=== PATIENT | male | born 1975 | race Caucasian/White ===

== ENCOUNTER 2018-08-28 14:20 | Emergency (ER) | payer BC, OTHER ==
--- NOTE | 2018-08-28 15:03 | ER Document Report ---
ED Medical Screen (RME) - General Chief Complaint: Dizziness Stated Complaint: DIZZINESS Time Seen by Provider: 08/28/18 14:51 Primary Care Provider: PHILL HERNANDEZ [Primary Care Provider] - Follow up as needed Mode of Arrival: Ambulatory Information source: Patient Notes: Patient presents to the emergency department with complaints of feeling foggy cannot focus for years. He reports last Tuesday after he got done eating he came out the restaurant and he experienced some flashing lights peripherally. He reports this went away after about 5 minutes. Then Tuesday he experienced a dizzy blurred vision spinning feeling he had to sit on the floor of the garage. He reports after about 5 minutes the feeling was gone. He felt a little bit better after sitting. Later on he was able to go work in the garden. He reports he is feeling off today but he went to work. Denies all other symptoms such as chest pain shortness of breath fever vomiting diarrhea. Patient denies past medical history of cardiac disease stroke. Patient reports he has not been to a provider for physical ever. 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 I have greeted and performed a rapid initial assessment of this patient. A comprehensive ED assessment and evaluation of the patient, analysis of test results and completion of the medical decision making process will be conducted by additional ED providers. Dictation of this chart was performed using voice recognition software; therefore, there may be some unintended grammatical errors. TRAVEL OUTSIDE OF THE [place] IN LAST 30 DAYS: No - Related Data Allergies/Adverse Reactions: Penicillins Allergy (Verified 08/28/18 14:20) Past Medical History - Social History Chew tobacco use (# tins/day): No Frequency of alcohol use: None Drug Abuse: None Renal/ Medical History: Denies: Hx Peritoneal Dialysis Physical Exam - Vital signs Vitals: Temp Pulse Resp BP Pulse Ox 97.9 F 58 L 16 119/75 100 08/28/18 14:23 08/28/18 14:23 08/28/18 14:08/28/18 14:23 08/28/18 14:23 Course - Vital Signs Vital signs: Temp Pulse Resp BP Pulse Ox 97.9 F 58 L 16 119/75 100 08/28/18 14:23 08/28/18 14:23 08/28/18 14:23 08/28/18 14:23 08/28/18 14:23 Doctor's Discharge - Discharge Referrals: LOCALMD,NO [Primary Care Provider] - Follow up as needed
[2018-08-28 15:39] LABS: ABSOLUTE EOSINOPHILS # (AUTO) 0.2 10^3/uL (0.0-0.6); ABSOLUTE LYMPHOCYTES (AUTO) 2.1 10^3/uL (0.5-4.7); ABSOLUTE MONOCYTES (AUTO) 0.4 10^3/uL (0.1-1.4); ABSOLUTE NEUT (AUTO) 4.3 10^3/uL (1.7-8.2); BASOPHILS % (AUTO) 0.6 % (0-2); EOSINOPHILS % (AUTO) 2.5 % (0-6); HEMATOCRIT 44.4 % (37.9-51.0); HEMOGLOBIN 15.6 g/dL (13.5-17.0); MEAN CORPUSCULAR HEMOGLOBIN 32.5 pg (27.0-33.4); MEAN CORPUSCULAR HGB CONC 35.2 g/dL (32.0-36.0); MEAN CORPUSCULAR VOLUME 93 fl (80-97); MONOCYTES % (AUTO) 5.3 % (3-13); PLATELET COUNT 242 10^3/uL (150-450); RED CELL DISTRIBUTION WIDTH 13.4 % (11.5-14.0); SEGMENTED NEUTROPHILS % (AUTO) 61.6 % (42-78); TOTAL CELLS COUNTED % (AUTO) 100 %
[2018-08-28 15:41] LABS: APPEARANCE,URINE CLEAR; BILIRUBIN,URINE NEGATIVE (NEGATIVE); COLOR,URINE STRAW; GLUCOSE, URINE NEGATIVE (NEGATIVE); KETONES,URINE NEGATIVE (NEGATIVE); LEUKOCYTE ESTERASE,URINE NEGATIVE (NEGATIVE); NITRITE,URINE NEGATIVE (NEGATIVE); PROTEIN,URINE NEGATIVE (NEGATIVE); URINE SPECIFIC GRAVITY 1.005; UROBILINOGEN,URINE NEGATIVE mg/dL (<2.0)
[2018-08-28 15:55] LABS: URINE AMPHETAMINES SCREEN NEGATIVE; URINE BARBITURATES SCREEN NEGATIVE; URINE BENZODIAZEPINES SCREEN NEGATIVE; URINE COCAINE SCREEN NEGATIVE; URINE MARIJUANA (THC) SCREEN NEGATIVE; URINE PHENCYCLIDINE SCREEN NEGATIVE
[2018-08-28 15:57] LABS: URINE METHADONE SCREEN NEGATIVE
[2018-08-28 15:58] LABS: ALANINE AMINOTRANSFERASE 32 U/L (21-72); ALBUMIN 4.8 g/dL (3.5-5.0); ALKALINE PHOSPHATASE 75 U/L (38-126); ANION GAP 9 (5-19); ASPARTATE AMINO TRANSFERASE 29 U/L (17-59); BILIRUBIN,DIRECT 0.3 mg/dL (0.0-0.4); BILIRUBIN,TOTAL 1.4 mg/dL (0.2-1.3); BLOOD UREA NITROGEN 12 mg/dL (7-20); CALCIUM 10.2 mg/dL (8.4-10.2); CARBON DIOXIDE 30 mmol/L (22-30); CHLORIDE 100 mmol/L (98-107); GLUCOSE 81 mg/dL (75-110); POTASSIUM 4.2 mmol/L (3.6-5.0); SODIUM 138.8 mmol/L (137-145); TOTAL PROTEIN 7.7 g/dL (6.3-8.2)
--- NOTE | 2018-08-28 17:19 | ER Document Report ---
ED General - General Chief Complaint: Dizziness Stated Complaint: DIZZINESS Time Seen by Provider: 08/28/18 14:51 Primary Care Provider: SWATI NAVARRO MD [ACTIVE STAFF] - Follow up tomorrow Mode of Arrival: Ambulatory Notes: Patient is a 42-year-old male that presents to the emergency department for chief complaint of vision changes. Patient states for years he has had episodes of what he describes as having "fogginess" and difficulty focusing, but on Tuesday he had an episode where he got somewhat lightheaded and had a hard time focusing noticed flashing lights in the periphery of his vision bilaterally, is only lasted a few moments, and the did not come back. He states then again on Tuesday he was working on tractor, he was knelt down for about 45 minutes, then when he stood up and turned around quickly got a little bit lightheaded and somewhat dizzy and then it resolved on its own. He denies having any associated headache. Denies any numbness, weakness, tingling, slurred speech or difficulty speaking. Denies any of those complaints specifically at this time. He states more recently over the past several months he has had some issues with focusing particularly when reading up close, but denies having complaint of that currently. He does not wear glasses or contacts. Past Medical History: Denies chronic medical conditions Past Surgical History: Denies surgical history Social History: Denies smoking cigarettes, admits to occasional alcohol use, denies illicit drug use. Family History: Reviewed and noncontributory for presenting illness Allergies: Reviewed, see documented allergy list. REVIEW OF SYSTEMS: Other than noted above, the 12 point review of systems was reviewed with the patient and were negative, all pertinent findings are included in the HPI. PHYSICAL EXAMINATION: Vital signs reviewed, nursing noted reviewed. GENERAL: Well-appearing, well-nourished and in no acute distress. HEAD: Atraumatic, normocephalic. EYES: Eyes appear normal, extraocular movements intact, sclera anicteric, conjunctiva are normal. Funduscopic exam appears normal, normal red reflex bilaterally, blood vessels appear normal, bilateral ocular ultrasound demonstrat es normal-appearing retina, without vitreal foreign body, or evidence of vitreal hemorrhage. ENT: nares patent, oropharynx clear without exudates. Moist mucous membranes. TMs appear normal bilaterally. NECK: Normal range of motion, supple without lymphadenopathy LUNGS: Breath sounds clear to auscultation bilaterally and equal. No wheezes rales or rhonchi. HEART: Regular rate and rhythm without murmurs ABDOMEN: Soft, nontender, normoactive bowel sounds. No rebound, guarding, or rigidity. No masses appreciated. EXTREMITIES: Nontender, good range of motion, no pitting or edema. NEUROLOGICAL: No focal neurological deficits. Moves all extremities spontaneously Motor and sensory grossly intact on exam. PSYCH: Normal mood, normal affect. SKIN: Warm, Dry, normal turgor, no rashes or lesions noted on exposed skin TRAVEL OUTSIDE OF THE [place] IN LAST 30 DAYS: No - Related Data Allergies/Adverse Reactions: Penicillins Allergy (Verified 08/28/18 14:20) Past Medical History - General Information source: Patient - Social History Smoking Status: Never Smoker Chew tobacco use (# tins/day): No Frequency of alcohol use: None Drug Abuse: None Family History: Reviewed & Not Pertinent Patient has suicidal ideation: No Patient has homicidal ideation: No Renal/ Medical History: Denies: Hx Peritoneal Dialysis Physical Exam - Vital signs Vitals: Temp Pulse Resp BP Pulse Ox 97.9 F 56 L 16 119/75 100 08/28/18 14:21 08/28/18 14:21 08/28/18 14:21 08/28/18 14:21 08/28/18 14:21 Course - Re-evaluation Re-evalutation: Patient seen and examined vital signs reviewed. Laboratory data and/or imaging were ordered as appropriate for the patient's presenting symptoms and complaint, with consideration of any critical or life threatening conditions that may be associated with their obtained history and exam as noted above. Results were reviewed when available and demonstrated unremarkable work-up including imaging of the eyes The patient was re-evaluated and was stable, asymptomatic Evaluation was most consistent with visual changes, patient not currently have them now, will advised to follow-up with ophthalmology, it sounds that the patient is having issues with reading up close, with the flashes and as I do think he needs a formal ophthalmology evaluation, for detailed retinal exam, which the patient was agreeable to. He is given referral. Results were discussed with the patient at this point, after careful consideration I feel that that patient can be discharged from the emergency department, the patient was educated treatments and reasons to return to the emergency department based on their presumed diagnosis as noted above, they were advised to followup with a primary care physician in 2-3 days. Patient was agreeable to plan of care. *Note is created using voice recognition software and may contain spelling, syntax or grammatical errors. Laboratory 08/28/18 08/28/18 08/28/18 15:11 15:11 15:11 WBC 7.0 RBC 4.80 Hgb 15.6 Hct 44.4 MCV 93 MCH 32.5 MCHC 35.2 RDW 13.4 Plt Count 242 Seg Neutrophils % 61.6 Lymphocytes % 30.0 Monocytes % 5.3 Eosinophils % 2.5 Basophils % 0.6 Absolute Neutrophils 4.3 Absolute Lymphocytes 2.1 Absolute Monocytes 0.4 Absolute Eosinophils 0.2 Absolute Basophils 0.0 Sodium 138.8 Potassium 4.2 Chloride 100 Carbon Dioxide 30 Anion Gap 9 BUN 12 Creatinine 0.72 Est GFR ( Amer) > 60 Est GFR (Non-Af Amer) > 60 Glucose 81 Calcium 10.2 Total Bilirubin 1.4 H Direct Bilirubin 0.3 Neonat Total Bilirubin Not Reportable Neonat Direct Bilirubin Not Reportable Neonat Indirect Bili Not Reportable AST 29 ALT 32 Alkaline Phosphatase 75 Total Protein 7.7 Albumin 4.8 Urine Color STRAW Urine Appearance CLEAR Urine pH 7.0 Ur Specific [place] 1.005 Urine Protein NEGATIVE Urine Glucose (UA) NEGATIVE Urine Ketones NEGATIVE Urine Blood NEGATIVE Urine Nitrite NEGATIVE Urine Bilirubin NEGATIVE Urine Urobilinogen NEGATIVE Ur Leukocyte Esterase NEGATIVE Urine WBC (Auto) 0 Urine RBC (Auto) 0 Urine Mucus (Auto) RARE Urine Ascorbic Acid NEGATIVE Urine Opiates Screen Urine Methadone Screen Ur Barbiturates Screen Ur Phencyclidine Scrn Ur Amphetamines Screen U Benzodiazepines Scrn Urine Cocaine Screen U Marijuana (THC) Screen 08/28/18 15:11 WBC RBC Hgb Hct MCV MCH MCHC RDW Plt Count Seg Neutrophils % Lymphocytes % Monocytes % Eosinophils % Basophils % Absolute Neutrophils Absolute Lymphocytes Absolute Monocytes Absolute Eosinophils Absolute Basophils Sodium Potassium Chloride Carbon Dioxide Anion Gap BUN Creatinine Est GFR ( Amer) Est GFR (Non-Af Amer) Glucose Calcium Total Bilirubin Direct Bilirubin Neonat Total Bilirubin Neonat Direct Bilirubin Neonat Indirect Bili AST ALT Alkaline Phosphatase Total Protein Albumin Urine Color Urine Appearance Urine pH Ur Specific [place] Urine Protein Urine Glucose (UA) Urine Ketones Urine Blood Urine Nitrite Urine Bilirubin Urine Urobilinogen Ur Leukocyte Esterase Urine WBC (Auto) Urine RBC (Auto) Urine Mucus (Auto) Urine Ascorbic Acid Urine Opiates Screen NEGATIVE Urine Methadone Screen NEGATIVE Ur Barbiturates Screen NEGATIVE Ur Phencyclidine Scrn NEGATIVE Ur Amphetamines Screen NEGATIVE U Benzodiazepines Scrn NEGATIVE Urine Cocaine Screen NEGATIVE U Marijuana (THC) Screen NEGATIVE - Vital Signs Vital signs: Temp Pulse Resp BP Pulse Ox 98.4 F 59 L 16 107/63 97 08/28/18 19:15 08/28/18 19:15 08/28/18 19:15 08/28/18 19:15 08/28/18 19:15 - Laboratory Result Diagrams: 08/28/18 15:11 08/28/18 15:11 Laboratory results interpreted by me: 08/28/18 15:11 Total Bilirubin 1.4 H - EKG Interpretation by Me Additional EKG results interpreted by me: EKG demonstrates sinus rhythm with a ventricular rate of 63 bpm, slight left axis deviation, normal intervals, no evidence of acute ischemia in this EKG, no prior for comparison. Discharge - Discharge Clinical Impression: Vision changes, Lightheadedness Condition: Stable Disposition: HOME, SELF-CARE Instructions: Dizziness ([facility]) Additional Instructions: Please follow-up with the animal therapist listed with your paperwork. Call for an appointment tomorrow. If you have worsening of your symptoms or further concern, you can always return to the emergency department to be reevaluated as well. Referrals: SWATI NAVARRO MD [ACTIVE STAFF] - Follow up tomorrow
[2018-08-28 19:16] VITALS: BP 107/63
--- NOTE | 2018-08-28 19:29 | EKG REPORT ---
SEVERITY:- ABNORMAL ECG - SINUS RHYTHM LEFT VENTRICULAR HYPERTROPHY BORDERLINE T ABNORMALITIES, INFERIOR LEADS : Confirmed by: Luiz Bradley MD 28-Aug-2018 19:28:21
== END 2018-08-28 19:16 | disposition home or self-care (01) ==
LOC: ER 14:20
DX: R42 Dizziness and giddiness (principal); H53.8 Other visual disturbances; Z88.0 Allergy status to penicillin
CPT/HCPCS: 36415; 80053; 80307; 81001; 85025; 93005; 93010; 99284

== ENCOUNTER 2018-09-11 11:18 | Emergency (ER) | payer BC ==
--- NOTE | 2018-09-11 12:05 | ER Document Report ---
ED Medical Screen (RME) - General Chief Complaint: Epigastric Pain Stated Complaint: SHORTNESS OF BREATHE Time Seen by Provider: 09/11/18 12:01 TRAVEL OUTSIDE OF THE [place] IN LAST 30 DAYS: No - HPI Notes: 09/11/18 12:04 Patient is a 42-year-old male no significant past medical history who presents complaining of having epigastric/lower sternal tightness that caused him to feel short of breath that lasted for about 5 to 10 minutes to hours ago. Patient states that he still has some tightness associated with epigastrium, but the shortness of breath has improved. Patient states that this occurred once last week as well. Since then he has been feeling fatigued. He is able to eat and drink without difficulty. He is urinating normally and having normal bowel movements. Denies JANSEN, fever, neck pain, URI, n/v/d, dysuria, back pain, or rash. I have treated and performed a rapid initial assessment of this patient. A comprehensive ED assessment and evaluation of the patient, analysis of test res ults and completion of medical decision making process will be conducted by additional ED providers. PHYSICAL EXAMINATION: GENERAL: Well-appearing, well-nourished and in no acute distress. A&Ox4. Answers questions appropriately. LUNGS: Breath sounds clear to auscultation bilaterally and equal. No wheezes rales or rhonchi. HEART: Regular rate and rhythm without murmurs, rubs, gallops. ABDOMEN: Soft, nondistended abdomen. No guarding, no rebound. Normal bowel sounds present. No CVA tenderness bilaterally. + mild epigastric tenderness (cannot elicit thorough abd exam w/o bed, however). Extremities: No cyanosis, clubbing, or edema b/l. No lower extremity asymmetry. Faiza negative bilaterally. NEUROLOGICAL: Normal speech, normal gait. PSYCH: Normal mood, normal affect. - Related Data Allergies/Adverse Reactions: Penicillins Allergy (Verified 08/28/18 14:20) Past Medical History Renal/ Medical History: Denies: Hx Peritoneal Dialysis Physical Exam - Vital signs Vitals: Temp Pulse Resp BP Pulse Ox 98.2 F 58 L 16 112/75 98 09/11/18 11:47 09/11/18 11:47 09/11/18 11:47 09/11/18 11:47 09/11/18 11:47 Course - Vital Signs Vital signs: Temp Pulse Resp BP Pulse Ox 98.2 F 58 L 16 112/75 98 09/11/18 11:47 09/11/18 11:47 09/11/18 11:47 09/11/18 11:47 09/11/18 11:47
[2018-09-11 12:28] LABS: ABSOLUTE EOSINOPHILS # (AUTO) 0.2 10^3/uL (0.0-0.6); ABSOLUTE LYMPHOCYTES (AUTO) 1.2 10^3/uL (0.5-4.7); ABSOLUTE MONOCYTES (AUTO) 0.3 10^3/uL (0.1-1.4); ABSOLUTE NEUT (AUTO) 5.9 10^3/uL (1.7-8.2); BASOPHILS % (AUTO) 0.6 % (0-2); HEMOGLOBIN 16.3 g/dL (13.5-17.0); MEAN CORPUSCULAR HEMOGLOBIN 32.5 pg (27.0-33.4); MEAN CORPUSCULAR HGB CONC 35.3 g/dL (32.0-36.0); MEAN CORPUSCULAR VOLUME 92 fl (80-97); MONOCYTES % (AUTO) 3.6 % (3-13); PLATELET COUNT 230 10^3/uL (150-450); RED BLOOD COUNT 5.01 10^6/uL (4.35-5.55); RED CELL DISTRIBUTION WIDTH 13.7 % (11.5-14.0); SEGMENTED NEUTROPHILS % (AUTO) 77.8 % (42-78); TOTAL CELLS COUNTED % (AUTO) 100 %; WHITE BLOOD COUNT 7.6 10^3/uL (4.0-10.5)
[2018-09-11 12:51] LABS: ALANINE AMINOTRANSFERASE 37 U/L (21-72); ALBUMIN 4.6 g/dL (3.5-5.0); ALKALINE PHOSPHATASE 65 U/L (38-126); ANION GAP 10 (5-19); ASPARTATE AMINO TRANSFERASE 31 U/L (17-59); BILIRUBIN,DIRECT 0.3 mg/dL (0.0-0.4); BILIRUBIN,TOTAL 0.9 mg/dL (0.2-1.3); BLOOD UREA NITROGEN 15 mg/dL (7-20); CALCIUM 10.2 mg/dL (8.4-10.2); CARBON DIOXIDE 29 mmol/L (22-30); CHLORIDE 102 mmol/L (98-107); GLUCOSE 86 mg/dL (75-110); LIPASE 232.4 U/L (23-300); POTASSIUM 4.3 mmol/L (3.6-5.0); SODIUM 140.7 mmol/L (137-145); TOTAL PROTEIN 7.4 g/dL (6.3-8.2)
--- NOTE | 2018-09-11 13:05 | RADIOLOGY REPORT (SQ) ---
EXAM DESCRIPTION: CHEST SINGLE VIEW COMPLETED DATE/TIME: 09/11/2018 12:50 pm REASON FOR STUDY: epigastric pain/CP COMPARISON: None. EXAM PARAMETERS: NUMBER OF VIEWS: One view. TECHNIQUE: Single frontal radiographic view of the chest acquired. RADIATION DOSE: NA LIMITATIONS: None. FINDINGS: LUNGS AND PLEURA: No consolidation, masses or pneumothorax. No pleural effusion. MEDIASTINUM AND HILAR STRUCTURES: No masses. Contour normal. HEART AND VASCULAR STRUCTURES: Heart normal in size. Normal vasculature. BONES: No acute findings. HARDWARE: None in the chest. OTHER: No other significant finding. IMPRESSION: NO ACUTE RADIOGRAPHIC FINDING IN THE CHEST. TECHNICAL DOCUMENTATION: JOB ID: [id number] [place]-72 2010 [employer]- All Rights Reserved Reading location - IP/workstation name: [email or web address]
[2018-09-11] MEDS ORDERED: NORMAL SALINE 1000 ML 1,000 ML IV ONE (14:38)
[2018-09-11 15:51] LABS: APPEARANCE,URINE CLEAR; BILIRUBIN,URINE NEGATIVE (NEGATIVE); COLOR,URINE STRAW; GLUCOSE, URINE NEGATIVE (NEGATIVE); KETONES,URINE NEGATIVE (NEGATIVE); LEUKOCYTE ESTERASE,URINE NEGATIVE (NEGATIVE); NITRITE,URINE NEGATIVE (NEGATIVE); PROTEIN,URINE NEGATIVE (NEGATIVE); URINE SPECIFIC GRAVITY 1.005; UROBILINOGEN,URINE NEGATIVE mg/dL (<2.0)
--- NOTE | 2018-09-11 15:57 | ER Document Report ---
ED General - General Chief Complaint: Epigastric Pain Stated Complaint: SHORTNESS OF BREATHE Time Seen by Provider: 09/11/18 12:01 TRAVEL OUTSIDE OF THE [place] IN LAST 30 DAYS: No - HPI Notes: 42-year-old male to the emergency department with complaints of fatigue epigastric discomfort, shortness of breath since . He states that the epigastric discomfort feels like [id number] and radiates up into his chest. Denies brenda chest pain but does report chest tightness. He states that he has also been feeling extremely fatigued for the past several weeks. This is unlike him as he usually is always busy and on the go. Denies fevers, chills, nausea, vomiting, diarrhea, flank pain, urinary symptoms. Denies history of thyroid dysfunction. Is any recent insect bites concerning for tick b ite/Lyme's. However he does work outside for his job. No recent travel, no leg swelling, no history of DVT, no history of malignancy and himself. He does not smoke, he does not have diabetes, hypertension, or hyperlipidemia. There is no family history that he knows of of sudden cardiac or heart attack. - Related Data Allergies/Adverse Reactions: Penicillins Allergy (Verified 08/28/18 14:20) Past Medical History - General Information source: Patient - Social History Smoking Status: Never Smoker Frequency of alcohol use: Occasional Drug Abuse: None Family History: Reviewed & Not Pertinent Patient has suicidal ideation: No Patient has homicidal ideation: No Renal/ Medical History: Denies: Hx Peritoneal Dialysis Review of Systems - Review of Systems Constitutional: Malaise, Weakness. denies: Chills, Fever EENT: No symptoms reported Cardiovascular: Lightheaded. denies: Palpitations, Orthopnea, Dyspnea - Lungs have chest tightness and [id number] into the chest, Syncope Respiratory: Short of breath. denies: Cough, Hurts to breathe Gastrointestinal: Abdominal pain. denies: Diarrhea, Nausea, Vomiting Genitourinary: No symptoms reported Skin: No symptoms reported Neurological/Psychological: Tingling - pins and needles into the upper abdomen and radiating into the chest. denies: Weakness, Numbness -: Yes All other systems reviewed and negative Physical Exam - Vital signs Vitals: Temp Pulse Resp BP Pulse Ox 98.2 F 58 L 16 112/75 98 09/11/18 11:47 09/11/18 11:47 09/11/18 11:47 09/11/18 11:47 09/11/18 11:47 Interpretation: Normal - General General appearance: Appears well, Alert - HEENT Head: Normocephalic, Atraumatic Eyes: Normal Pupils: PERRL - Respiratory Respiratory status: No respiratory distress Chest status: Nontender Breath sounds: Normal Chest palpation: Normal - Cardiovascular Rhythm: Regular Heart sounds: Normal auscultation Murmur: No - Abdominal Inspection: Normal Distension: No distension Bowel sounds: Normal Tenderness: Nontender Organomegaly: No organomegaly - Back Back: Normal, Nontender - Extremities General upper extremity: Normal inspection, Nontender, Normal color, Normal ROM, Normal temperature General lower extremity: Normal inspection, Nontender, Normal color, Normal ROM, Normal temperature, Normal weight bearing. No: Faiza's sign - Neurological Neuro grossly intact: Yes Cognition: Normal Orientation: AAOx4 Bo Coma Scale Eye Opening: Spontaneous [place] Coma Scale Verbal: Oriented [place] Coma Scale Motor: Obeys Commands [place] Coma Scale Total: 15 Speech: Normal Motor strength normal: LUE, RUE, LLE, RLE Sensory: Normal - Psychological Associated symptoms: Normal affect, Normal mood - Skin Skin Temperature: Warm Skin Moisture: Dry Skin Color: Normal Course - Vital Signs Vital signs: Temp Pulse Resp BP Pulse Ox 97.8 F 54 L 16 114/75 99 09/11/18 17:15 09/11/18 17:15 09/11/18 11:47 09/11/18 17:15 09/11/18 17:15 - Laboratory Result Diagrams: 09/11/18 12:16 09/11/18 12:16 - Transfer of Care Notes: Impression: Epigastric discomfort, fatigue. Noted labs which are reassuring. Patient states he has not pain on re-exam and his abd is soft and non tender. he does report feeling fatigued. Will plan on discharge home with close follow up with PCP -- he has an appointment on September 14. Discharge - Discharge Clinical Impression: Epigastric pain, Fatigue, Lightheadedness Disposition: HOME, SELF-CARE Instructions: Dizziness ([facility]), Fatigue ([facility]) Additional Instructions: FOLLOW UP WITH PRIMARY CARE ON SEPTEMBER 14 WITHOUT FAIL. RETURN IF WORSE. PUSH FLUIDS. Forms: Return to Work
[2018-09-11 16:13] LABS: URINE AMPHETAMINES SCREEN NEGATIVE; URINE BARBITURATES SCREEN NEGATIVE; URINE BENZODIAZEPINES SCREEN NEGATIVE; URINE COCAINE SCREEN NEGATIVE; URINE MARIJUANA (THC) SCREEN NEGATIVE; URINE METHADONE SCREEN NEGATIVE; URINE PHENCYCLIDINE SCREEN NEGATIVE
[2018-09-11 17:24] VITALS: BP 114/75
--- NOTE | 2018-09-11 23:36 | EKG REPORT ---
SEVERITY:- ABNORMAL ECG - SINUS RHYTHM LEFT VENTRICULAR HYPERTROPHY : Confirmed by: Melinda Ngo MD 11-Sep-2018 23:36:03
[2018-09-14 08:22] LABS: LYME DISEASE IGM AB <0.80 index (0.00-0.79)
== END 2018-09-11 17:24 | disposition home or self-care (01) ==
LOC: ER 11:18
DX: R53.83 Other fatigue (principal); R42 Dizziness and giddiness; R10.13 Epigastric pain; R06.02 Shortness of breath
CPT/HCPCS: 93005; 99284; 96360; 36415; 83690; 83735; 84443; 85025; 80053; 81001; 84484; 80307; 86618 ×2; 86617 ×2; 71045; 93010; J7030